=== PATIENT | female | born 1940 | race Caucasian/White ===

== ENCOUNTER 2017-03-12 20:00 | Inpatient (IN) | payer MEDICARE ==
[~2017-03-12] VITALS: Ht 157.5 cm; Wt 70.9 kg
--- NOTE | ~2017-03-12 | ECHO ---
Transthoracic Echocardiography Report (TTE) Demographics Patient Name ROBERT LAWRENCE Date of Study 03/14/2017 Patient Number [id number] Visit Number [id number] Date of 1940 Room Number G6325 Gender Female Number Age 76 year(s) Referring Gebremicheal Jeep Mechanic Lorenzo Silva RDCS, Physician Andrew RVT, RDMS, COAT AGENT Physician Interpreting Alvaro Toledo Surgical Pathologist Physician Supervising Ordering Stephane Llanes CRNA, MD/MLP Physician Nurse Stress Coffee Machine Technician Conclusions Summary Hyperdynamic left ventricle with estimated LVEF 70-75%. There is mild concentric left ventricular hypertrophy. It is normal in size with grade 1 diastolic dysfuntion. Normal right ventricular size and function. The left atrium is moderately dilated Moderate mitral annular calcification. Trivial mitral regurgitation by color Doppler. The aortic valve is mildly sclerotic with mild regurgitation. Incidental finding: Ascites noted Possible left pleural effusion. Clinical correlation is recommended. Procedure Type of Study TTE procedure:2D Echocardiogram, M-Mode, Doppler , Color Doppler. Procedure Date Date: 03/14/2017 Start: 10:40 AM Study Location: Inpatient Portable Technical Quality: Fair due to breast augmentation. Additional Indications:Worsening murmur. Patient Status: Routine HR: 80 bpm BP: 176/74 mmHg M-Mode/2D Measurements LV Diastolic Dimension: 4.22 cm LV Systolic Dimension: 3.09 cm LV Septum Diastolic: 1.31 cm LV PW Diastolic: 1.17 cm AO Root Dimension: 3 cm AV Cusp Separation: 2 cm RV Diastolic Dimension: 2.66 cm LA Dimension: 3.8 cm LA volume: 71 ml RV Base: 3.2 cm LVOT: 2.2 cm RV Mid: 2.3 cm RV Length: 5.8 cm TAPSE: 2.8 cm TDI-S': 16 cm/s Doppler Measurements AV Peak Velocity: 1.53 m/s MV Peak E-Wave: 0.81 m/s AV Peak Gradient: 9.36 mmHg MV Peak A-Wave: 1.06 m/s LVOT Peak Velocity: 1.45 m/s MV E/A Ratio: 0.76 MV P1/2t: 81 msec E' Lateral Velocity: 0.08 m/s PV Peak Velocity: 1.48 m/s PV Peak Gradient: 8.76 mmHg A' Septal Velocity: 0.08 m/s A' Lateral Velocity: 0.12 m/s Findings Left Ventricle The left ventricle is hyperdynamic. There is mild concentric left ventricular hypertrophy. It is normal in size with grade 1 diastolic dysfuntion. Right Ventricle Normal right ventricular size and function. Cannot estimate RVSP due to inadequate TR jet. Left Atrium The left atrium is moderately dilated by LA volume index measurement. Right Atrium Normal right atrial size. Mitral Valve Moderate mitral annular calcification. Trivial mitral regurgitation by color Doppler. Aortic Valve The aortic valve is mildly sclerotic with mild regurgitation. Tricuspid Valve Normal tricuspid valve structure and function. Pulmonic Valve Mild pulmonic valve regurgitation by color Doppler. Pericardial Effusion No evidence of pericardial effusion. Miscellaneous Incidental finding: Ascites noted Pleural Effusion Possible left pleural effusion. Contractility Score LV regional wall motion:(0-Non visualized 1-Normal 2-Hypokinesis 3-Akinesis 4-Dyskinesis 5-Aneurysm) Signature dtt: KANA MCMANUS dtd: 03/14/17 1040 Physician Self Edit
--- NOTE | ~2017-03-12 | DS ---
PATIENT'S NAME: HOWARD [facility] AGE: 76 Y [address] ROOM: [address] [place], [place] [address] LOCATION: GPCU ADMIT DATE: 03/12/2017 Discharge Summary DISCHARGE DATE: 03/16/2017 FAMILY PHYSICIAN: Abelino Jeffrey MD ATTENDING PHYSICIAN: Andrew Agudelo PRINCIPAL DIAGNOSES: 1. Decompensated liver cirrhosis with hepatic encephalopathy. 2. Pancytopenia. 3. Cryptogenic cirrhosis. 4. Ascites. 5. Acute kidney injury, resolved. 6. Essential hypertension. 7. History of paroxysmal atrial fibrillation without long-term anticoagulation. 8. Chronic diastolic congestive heart failure. PRINCIPLE PROCEDURES: Underwent a paracentesis by Dr. Brigette Rodriguez on 03/12/2017 without complication. HOSPITAL COURSE: Please reference any of the admitting data to the history and physical as dictated by Dr. Rodriguez. This is a 76-year-old female who presented with altered mental status with a known history of cryptogenic cirrhosis, not a transplant candidate, and was admitted for further evaluation. Her initial presenting lab values were evident of elevated liver functions with a total bilirubin of 3.9, AST of 41, and ALT of 31 respectively. She underwent a paracentesis and was given albumin without any complication. She was started on Rocephin empirically until culture was negative. SBP was ruled out. The patient was given lactulose for perceived hepatic encephalopathy and showed some mild improvement. CT scan at outlying facility did show bilateral frontal hematomas as radiologist read [id number]. However, Neuro evaluation felt this was secondary to a history of subdural hematomas and was probably chronic in nature. There is no need for any neurosurgical intervention. Cognition improved with GI interventions. SBP was ruled out and she was mobilized safely. The patient was also found to be pancytopenic upon admission with a white blood cell count of 3.3, hemoglobin of 6.8, hematocrit of 20.2, and a platelet count of 56. She was given 1 unit of packed red blood cells. She showed no signs or symptoms of bleeding and iron studies were obtained haptoglobin and ferritin. Most likely of chronic disease state, she did remain greater than 8 during the remainder of her stay, platelet counts greater than 40 during her PATIENT'S NAME: [facility] AGE: 76 Y [address] ROOM: [address] [place], [place] [address] LOCATION: GPCU ADMIT DATE: 03/12/2017 Discharge Summary DISCHARGE DATE: 03/16/2017 FAMILY PHYSICIAN: Abelino Jeffrey MD ATTENDING PHYSICIAN: Andrew Agudelo; again, she had no bleeding compromise. Her acute kidney injury responded with IV fluids and returned to normal. CONDITION AT DISCHARGE: Good. PERTINENT LAB FINDINGS: As described above in the HPI. Most notably, a CBC last on 03/16/2017 showed a white blood cell count of 3.6, hemoglobin 8.2, hematocrit 24.0, and a platelet count of 43, hemoglobin up from 6.8 to 6.9 respectively. Chemistry panel on 03/16/2017 showed a glucose 125, BUN 19, creatinine 0.8, sodium 136, potassium 4.7, chloride 104, CO2 of 25, and calcium 8.5. Liver functions, AST 41, ALT of 32, a total bilirubin of 2.1, down from 3.9 and 4.5 respectively, and LDH 166, a haptoglobin of 17, iron study of 159, TIBC of 164, percent sat of 97, ferritin level was 113.40, alpha- fetoprotein levels are pending. Copper levels and ceruloplasmin are pending. Peritoneal fluid was orange in color with 2+ turbidity, 5,000 red blood cells, and 251 white blood cells. Microanalysis showed no organisms observed or growth at 3 days. Urinalysis was negative for infection and MARIA EUGENIA was negative. RADIOLOGIC IMAGING: Abdominal ultrasound showed suspected cirrhosis with associated splenomegaly. No other acute findings. DISCHARGE MEDICATIONS: 1. Lasix 40 mg p.o. everyday. 2. Aldactone 100 mg p.o. everyday. 3. Lactulose 20 g 1 packet p.o. 3 times daily titrating to 3 to 4 bowel movements every 24 hours. 4. Lisinopril hydrochlorothiazide 20/12.5 mg 1 tablet p.o. everyday. 5. Metoprolol 25 mg p.o. everyday. 6. Protonix 40 mg p.o. everyday. DISCHARGE INSTRUCTIONS: The patient will be discharged to home with diet and activity is as tolerated. She is from the [facility] and is visiting family and she plans to return within the next 2 weeks; however, she does not return within the next 2 weeks, she is to get a CBC and a CMS at a followup with a PCP in [place], which she has seen Dr. Abelino Jeffrey in the past. If she does return to [place], it was recommended for her to see her PCP for those laboratory values in the next 2 weeks. She should also follow up with her primary gastroenterology team within the next 2 to 4 weeks with recommendations for followup EGD for her history of esophageal varices for surveillance. She does have a history of banding. PATIENT'S NAME: HOWARD [facility] AGE: 76 Y [address] ROOM: [place] [address] [facility] ADMIT DATE: 03/12/2017 Discharge Summary DISCHARGE DATE: 03/16/2017 FAMILY PHYSICIAN: Abelino Jeffrey MD ATTENDING PHYSICIAN: Andrew Agudelo At the time of discharge, she did have to have a PICC line placed and this was removed without any complications by nursing. The above line of management was discussed with the patient and spouse who stated complete understanding. All questions were answered with statements of satisfaction. Thank for allowing us to participate in the care of this patient while at [facility]. TERE WALLACE APRN, APRN FOR MD MARJ CHÁVEZ/brent /[id number] CC: Abelino Jeffrey MD d: 03/17/17 0209 t: 03/18/17 1659, DISCHARGE SUMMARY
--- NOTE | ~2017-03-12 | OR ---
PATIENT'S NAME: ROBERT LAWRENCE [facility] AGE: 76 Y [address] ROOM: [place] [address] [facility] ADMIT DATE: 03/12/2017 OR/Procedure Report DISCHARGE DATE: FAMILY PHYSICIAN: RACHID PEREZ MD ATTENDING PHYSICIAN: SHIV RODRIGUEZ SURGEON: Elmira Rodriguez MD WINDER HAND: DATE OF PROCEDURE: 03/12/2017 PROCEDURE: Diagnostic paracentesis. INDICATIONS: To diagnose spontaneous bacterial peritonitis. DESCRIPTION OF PROCEDURE: Informed consent was obtained from the over the phone with a nurse listening to the call. Risk and benefits were explained to the who gave us the permission to go ahead and do the procedure. Using ultrasonography, a pocket of fluid was identified in the left lower quadrant. The patient was prepped in sterile fashion. Local anesthesia was achieved with 1% lidocaine. Using an 18-gauge needle, we entered the peritoneal cavity with aspiration of the yellow fluid. We took about 30 mL of fluid, which was bryn, yellow in color, turbidity, a little turbid. No immediate complications of the procedure were noted. The fluid was sent to the lab for chemical examination. ELMIRA RODRIGUEZ MD DANA/modl /[id number] d: 03/13/17 0027 t: 03/23/17 0336, OPERATIVE SUMMARY
--- NOTE | ~2017-03-12 | CON ---
PATIENT'S NAME: [facility]ARD [facility] AGE: 76 Y [address] ROOM: [place] [address] LOCATION: GPCU ADMIT DATE: 03/12/2017 Consultation DISCHARGE DATE: FAMILY PHYSICIAN: RACHID PEREZ MD ATTENDING PHYSICIAN: SHIV RODRIGUEZ DATE OF CONSULTATION: 03/13/2017 REFERRING PHYSICIAN: JUSTIN MARC MD REASON FOR CONSULTATION: Hepatic encephalopathy and decompensated liver cirrhosis. HISTORY OF PRESENT ILLNESS: This is a very pleasant, 76-year-old female with past medical history of cryptogenic cirrhosis and decompensated liver disease. The patient was admitted with hepatic encephalopathy, ascites as well as history of bilateral subdural hematomas, while being on oral anticoagulation for atrial fibrillation. The patient was admitted to [facility] with increased confusion. The patient was given lactulose, though was transferred to [facility] secondary to worsening of her cognition. A CT scan was completed at the outside facility showing bilateral frontal hematomas as the radiologist read as acute on chronic. On admission, the patient was confused, not alert and oriented. She complained of abdominal pain. Diagnostic tap was completed and is currently pending at this time. She does state that she was having abdominal pain for the past 4 to 5 days with no associated bowel changes. She denies any chest pain, chest pressure, or shortness of breath. PAST MEDICAL HISTORY: Cryptogenic cirrhosis with decompensation manifested as esophageal varices, hepatic encephalopathy, and ascites; paroxysmal atrial fibrillation, was on long-term anticoagulation; subdural hematoma in the past; history of diastolic heart failure; anemia of chronic disease; chronic respiratory failure with hypoxia; type 2 diabetes, and history of breast cancer. SOCIAL HISTORY: The patient denies any ongoing toxic habits. FAMILY HISTORY: The patient's father from emphysema. She does have 2 brothers with cirrhosis, those both received transplant. ALLERGIES: MORPHINE, DARVON, AND DEMEROL. CURRENT MEDICATIONS: PATIENT'S NAME: HOWARD [facility] AGE: 76 Y [address] ROOM: [place] [address] LOCATION: GPCU ADMIT DATE: 03/12/2017 Consultation DISCHARGE DATE: FAMILY PHYSICIAN: RACHID PEREZ MD ATTENDING PHYSICIAN: SHIV RODRIGUEZ Please refer to the medication administration record. REVIEW OF SYSTEMS: All point review of systems was completed. All were negative except for those identified in the history of present illness. PHYSICAL EXAMINATION: GENERAL: A pleasant, 76-year-old female, who appears to be in no acute distress. VITAL SIGNS: Blood pressure 124/48, pulse of 73, and oxygen saturations 98%. SKIN: [place], warm, and dry. No jaundice. HEENT: Head is normocephalic and atraumatic. Pupils are equal, round, and reactive to light. Sclerae are clear. Nonicteric. Oral mucosa is pink and moist. NECK: Soft and supple. CARDIOVASCULAR: Regular. Normal S1 and S2. RESPIRATORY: Respirations are even and unlabored. LUNGS: Clear to auscultation. ABDOMEN: Soft, round, and tender throughout. Bowel sounds are positive. MUSCULOSKELETAL: No muscle weakness or atrophy. EXTREMITIES: No edema. NEUROLOGICAL: Positive for asterixis. The patient is an alert and oriented x3. LABORATORY DATA AND DIAGNOSTIC DATA: Laboratory was reviewed from the outside facility showing hyperkalemia with potassium of 5.4. AST was 58, ALT of 45, and ammonia 110. Abdominal ultrasound with diagnostic paracentesis was also completed and currently pending at this time. ASSESSMENT AND PLAN: Again, this is a very pleasant, 76-year-old female, who was recently transferred from [facility] with hepatic encephalopathy and ascites as well as a history of cryptogenic cirrhosis, decompensated. The patient did undergo a paracentesis for diagnostic approach as this is pending for probable SBP. The patient currently is on ceftriaxone at this time as this should be continued. The patient will also be recommended to continue lactulose regarding her hepatic encephalopathy. Complete liver workup will be obtained including serum copper ceruloplasmin, iron TIBC, ferritin, alpha-1 antitrypsin, and autoimmune profile. Further recommendations to be given over the course of the patient's hospitalization. PATIENT'S NAME: ROBERT LAWRENCE [facility] AGE: 76 Y [address] ROOM: [address] [place], [place] [address] [facility] ADMIT DATE: 03/12/2017 Consultation DISCHARGE DATE: FAMILY PHYSICIAN: RACHID PEREZ MD ATTENDING PHYSICIAN: SHIV RODRIGUEZ NITZA ARCHER MD MMF/brent /[id number] d: 03/15/17 1159 t: 03/15/17 1419, CONSULTATION REPORT
--- NOTE | ~2017-03-12 | OR ---
PATIENT'S NAME: ROBERT LAWRENCE [facility] AGE: 76 Y [address] ROOM: [place] [address] [facility] ADMIT DATE: 03/12/2017 OR/Procedure Report DISCHARGE DATE: FAMILY PHYSICIAN: RACHID PEREZ MD ATTENDING PHYSICIAN: SHIV RODRIGUEZ SURGEON: Kingston Streeter MD PERFECT BINDER SETTER: DATE OF PROCEDURE: 03/13/2017 Of note, procedure was performed in the patient's room in the progressive care unit. PREOPERATIVE DIAGNOSIS: Need for vascular access. POSTOPERATIVE DIAGNOSIS: Need for vascular access. PROCEDURE PERFORMED: Placement of peripherally inserted central catheter to the right arm. COMPLICATIONS: None. DESCRIPTION OF PROCEDURE: After informed consent was obtained, the patient's right arm was sterilely prepped and draped. Venous mapping before the procedure identified a basilic vein that was approximately 4.5 mm throughout the course of its travel in the medial right arm. Her left arm was excluded from interrogation given her history of prior mastectomy. Under sterile technique, ultrasound evaluation of her proximal medial right arm revealed a brachial artery and paired brachial veins which were large enough to accommodate a 5-Welsh catheter. After local anesthetic consisting of 1% lidocaine was infiltrated into the dermis, venous access using a 20-gauge IV catheter into one of the paired brachial veins was accomplished with ultrasound guidance on the first pass without injury to adjacent nerve or artery. The micro introducer wire passed without difficulty. The skin puncture was enlarged, and a dilator introducer sheath was passed over the wire. Through this breakaway introducer, a 5-Welsh double-lumen peripherally inserted central catheter was advanced after being cut at 35 cm. This distance had been measured before the initiation of the procedure using external landmarks. The catheter was advanced without difficulty with the patient's head turned to the right shoulder. Ultrasound evaluation of the right neck showed no evidence of the catheter extending into the internal jugular vein. Sterile dressings were applied. A postprocedure x-ray showed the line to be in good position. The wire was extracted. The catheter was flushed and made ready for venous access and use. PATIENT'S NAME: ROBERT LAWRENCE [facility] AGE: 76 Y [address] ROOM: [place] [address] LOCATION: GPCU ADMIT DATE: 03/12/2017 OR/Procedure Report DISCHARGE DATE: FAMILY PHYSICIAN: RACHID PEREZ MD ATTENDING PHYSICIAN: SHIV RODRIGUEZ KINGSTON STREETER MD CM/brent /[id number] d: 03/13/17 1811 t: 04/12/17 1448, OPERATIVE SUMMARY
--- NOTE | ~2017-03-12 | CON ---
PATIENT'S NAME: [facility] AGE: 76 Y [address] ROOM: [id number] [place], [place] [address] LOCATION: GPCU ADMIT DATE: 03/12/2017 Consultation DISCHARGE DATE: 03/16/2017 FAMILY PHYSICIAN: Abelino Jeffrey MD ATTENDING PHYSICIAN: Andrew Agudelo DATE OF CONSULTATION: 03/13/2017 REFERRING PHYSICIAN: Jerry Multani MD The patient was seen in neurologic consultation on 03/13/2017 at 10 a.m. I was asked to evaluate Ms. Lawrence, a 76-year-old female patient who came in with change of mental status associated with some mild symptoms of hepatic encephalopathy whereby she was having poor responsiveness at times during her initial admission, then rapidly got better during her days of treatment here in the hospital. Back in December of 2016, she was seen here in our hospital due to bilateral subdural hematomas and was just treated conservatively. She was evaluated by the neurosurgeon, Dr. Penn who felt like myself, the patient did not need any evacuations of these subdural hematomas. According to the patient, she was on anticoagulation a number of months ago, but this was discontinued due to a recent fall and head injury when she was home back in her home state of [facility]. She said that she accidentally fell on to the ground and hit a rock. Apparently was briefly seen in the hospital in [place] at that time. Sometime thereafter, the patient did have a workup for mild change in her mental status. Actually sent here from the hospital yesterday from [place] after the CT scan done there showed areas of bilateral frontal hematoma consistent with bilateral subdurals. There was some very mild flattening of the frontal gyri without any significant mass effect. Essentially again, the patient did have the prior subdural that was noted back in admission back in December of this year, but there was some evidence perhaps of some newer bleed into some more subacute bleed. There was a very small little area in the subdural region, increased density that seemed to be affecting the patient's mental status. By history, the patient has a history of cirrhosis that is not determined as far as the etiology. Has had a history of progressive liver disease with associated ascites and variceal bleeds. As mentioned, she was also on anticoagulation a few months ago due to atrial fibrillation. However, the anticoagulation had been discontinued and as of this visit, the patient states that she had not been on anticoagulation for many months. Apparently, she was seen by the Gastroenterology service in [facility] back in mid January of this year and they put her on aggressive daily treatment of combination of Lasix and Aldactone as well as taking lactulose treatment four times a day. She also had been on rifaximin for a short time also, but she could not afford this medication. She had to discontinue it. The patient apparently was compliant with all her medications. It is believed that she did have some alteration in her mental PATIENT'S NAME: [facility] AGE: 76 Y [address] ROOM: [id number] [place], [place] [address] LOCATION: GPCU ADMIT DATE: 03/12/2017 Consultation DISCHARGE DATE: 03/16/2017 FAMILY PHYSICIAN: Abelino Jeffrey MD ATTENDING PHYSICIAN: Andrew Agudelo status, possibly from the setting of dehydration, the combination of her diuretics, as well as treatment with her lactulose. As of this admission, the patient's diuretics were held and she received IV fluid rehydration and just with the rehydration alone and holding the medications, the patient's mental status actually improved dramatically. Therefore, from neurological perspective, this seemed to have been acute metabolic disorder, likely associated with some very mild hepatic encephalopathy, perhaps dehydration may have played a role compounding elevation in ammonia level at 110. Question also if she had a concurrent infection such as a spontaneous bacterial peritonitis. Therefore, during this admission, the patient had a peritoneal analysis. Thankfully, it did not show any evidence of an active infection. At the time of my seeing the patient, her mental status was excellent. Over the course of the past 24 hours, the patient has made a dramatic improvement in her mental status. Whereby her stated that she was extremely lethargic and confused on the and taken to [facility]. At the time when I saw her, she was fully alert and oriented, answering questions appropriately, not only that she was able to give me a very clear history with much elaboration. At the current time of my seeing the patient, she was also receiving packed red cells for a low hemoglobin of 6.9 in the setting of normal ferritin. The rest of her basic metabolic panel essentially within normal limits. AST and ALT were normal. From cardiac standpoint, she was noted to be in normal sinus rhythm even though history of atrial fibrillation had been noted in the distant past. PAST MEDICAL HISTORY: She has extensive medical history associated with cryptogenic liver failure. She has been through a full year with development of ascites back into November of this year. She had multiple paracentesis at least 6 or 7 procedures. She had been evaluated by our Gastroenterology service in [facility], decided that she would not be a candidate for liver transplant due to her age of 73 as well as the history of atrial fibrillation, coronary artery disease, as well as the concomitant bilateral subdural hematomas. The patient is . She used to work as a nurse for 40 years. She has a home in [place] but does come up to the local area prior to stay in [place]. She was getting a workup and eventually made her way to our area. She said to be with a granddaughter in the [facility]. Denies any alcohol history and she does not smoke. Also history of breast cancer, status post left mastectomy, history of obesity, benign essential hypertension, paroxysmal atrial fibrillation, now in normal sinus rhythm, was on anticoagulation in the past. She has also history of chronic anemia. FAMILY HISTORY: Father had of emphysema. She has two brothers who had liver failure and PATIENT'S NAME: [facility] AGE: 76 Y [address] ROOM: [place] [address] LOCATION: GPCU ADMIT DATE: 03/12/2017 Consultation DISCHARGE DATE: 03/16/2017 FAMILY PHYSICIAN: Abelino Jeffrey MD ATTENDING PHYSICIAN: Andrew Agudelo both received liver transplants. According to her, both of the liver failures in her brothers were idiopathic. PAST SURGICAL HISTORY: Surgeries were multiple including cholecystectomy in 1967 at age 28, appendectomy in 1948 at age 8, right knee replacement in 1995, another right knee replaced twice with repeat surgery back in December of 2016. She had corneal transplant surgery back in 1982, hysterectomy in 1989, exploratory laparotomy back in 1989, and mastectomy in August of 1995. The most recent multiple paracentesis procedures are during 2017 as well as on this admission. HOME MEDICATIONS: Her home medications prior to admission included: 1. Lasix 40 mg daily. 2. Lactulose 30 mL four times a day. 3. Metoprolol 25 mg one time daily. 4. Pantoprazole 40 mg p.o. daily. 5. Spironolactone 1 tablet daily. 6. Zinc sulfate 220 mg p.o. daily. REVIEW OF SYSTEMS: Ms. Lawrence is very pleasant 76-year-old lady with cryptogenic cirrhosis essentially treated with multiple paracentesis this year. She is known to have elevation in her ammonia associated with her liver failure. She presented to [facility] on the with lethargy and somnolence, essentially made a very quick recovery here in the hospital with fluid rehydration and holding diuretic therapy. She was also started on antibiotics for the thought of spontaneous bacterial peritonitis, though this was negative. The patient quickly made a recovery and unlikely had any evidence of SBP. She is doing very well now. Her mental status is back to baseline and she was able to give a full report here. PHYSICAL EXAMINATION: VITAL SIGNS: Showed a pulse of 80 and regular, respirations 18, blood pressure 149/65, and temperature 98.9. NEUROLOGIC: Cranial nerves 2 through 12 were intact. Motor exam revealed full power in the upper and lower extremities proximally and distally. She had normal bulk and tone. No atrophy of the muscles. She was able to do cross-body commands and rapid alternating hand movements and coordination on ppfysc-xy-kubw was excellent. I did not appreciate any asterixis, which was possibly reported prior to my seeing the patient. She had no evidence of any tremors. Her gait was narrow based. She did have abdominal distention, which limited her getting up from the bed easily, but she was able to ambulate well with narrow-based gait. She has negative Romberg's. PATIENT'S NAME: [facility] AGE: 76 Y [address] ROOM: [id number] [place], [place] [address] LOCATION: GPCU ADMIT DATE: 03/12/2017 Consultation DISCHARGE DATE: 03/16/2017 FAMILY PHYSICIAN: Abelino Jeffrey MD ATTENDING PHYSICIAN: Andrew Agudelo IMPRESSION: Ms. Lawrence is doing very well. She is back to her normal baseline. This may have been simply an issue of worsening of hepatic encephalopathy that may have been exacerbated due to some dehydration. Started antibiotic course here, but there was no evidence of an active infection. Spontaneous bacterial peritonitis has essentially been ruled out. She had additional workup here in our hospital by the GI service for the etiology associated with her liver failure, which included testing of anti-LKM1, MARIA EUGENIA, and apoceruloplasmin. Standpoint neurologically, I do not believe that she has neurologic problems associated with liver failure, per se, other than some mild hepatic encephalopathy, which could get exacerbated with over diuretic use, a possible etiology for her mild confusion. She did not have any fever. I do not believe that she has any signs of asterixis on physical exam. I do agree with the workup for testing for Tito's, general genetic workup though the etiology for liver failure seems to have hit to other family members. From standpoint of the subdural hematomas, they appeared to be chronic at this time. They are slightly compressive of the gyri, but I do not believe that they are having any affect neurologically on her gait or even on her mentation. Not really appreciate much of an acute on chronic bleed into the subdural. If new blood was there that was extremely slight. The patient was seen by Neurosurgery and with the agreement that no interventional drainage of these subdurals was necessary. Talking to the patient, I definitely told her that if she had any difficulty in her gait or in problems with comprehension developing unexplained that she should come to the emergency room again for re- evaluation of the subdurals. Right now, she is off anticoagulation and presently, I do not believe that it would be safe for her to go back on anticoagulation. She had a diagnosis of atrial fibrillation, but is in normal sinus rhythm. It is best that she not go on anticoagulation. Be available to have the patient follow up with us in Neurology Clinic if she remains in the [facility] though she likely has plans to go back to her home state of [place] in the very near future. MD CHLOE LARSON/brent /[id number] d: 03/19/17220 t: 04/06/17 1620, CONSULTATION REPORT
--- NOTE | ~2017-03-12 | HP ---
PATIENT'S NAME: [facility] AGE: 76 Y [address] ROOM: [address] [address] [facility] AD[facility] DATE: 03/12/2017 History & Physical DISCHARGE DATE: FAMILY PHYSICIAN: PHYSICIAN, UNKNOWN ATTENDING PHYSICIAN: SHIV RODRIGUEZ DATE OF SERVICE: CHIEF COMPLAINT: Altered mental status. HISTORY OF PRESENT ILLNESS: A 76-year-old lady with a past medical history of cryptogenic cirrhosis, not a candidate for transplant, also history of decompensated liver disease, manifested as esophageal varices, ascites, and hepatic encephalopathy; also, have history of bilateral subdural hematomas while being on oral anticoagulation for atrial fibrillation. She was recently admitted to the [facility] for increased confusion and altered mental status. Over there, she was treated with lactulose with a goal of 3 to 4 bowel movements per day. Her condition worsened in terms of cognition and she was transferred here for further medical care. A CAT scan of the head was also done over there, which did show bilateral frontal hematoma and the radiologist read it as [id number]. On my encounter, she is confused, not alert and oriented x3. She is complaining that she is having abdominal pain, but she denied any chest pain, but does not have any shortness of breath, headache, fever, or chills. She said she is tender all over the abdomen and has been going on for 4 or 5 days now, not associated with any constipation or diarrhea. She denied any burning on urination, any swelling, or any back pain. REVIEW OF SYSTEMS: All other systems reviewed were negative except what is mentioned in the HPI. ALLERGIES: DEMEROL, MORPHINE, AND DARVON. PAST MEDICAL HISTORY: 1. Cryptogenic cirrhosis with decompensation manifested as esophageal varices, hepatic encephalopathy, as well as ascites. 2. Paroxysmal atrial fibrillation, was on long-term anticoagulation, not on anymore. 3. Subdural hematoma in the past, conservatively managed. 4. History of diastolic heart failure. 5. Rlqbha-rg-jcrqxbz disease. 6. Chronic respiratory failure with hypoxia. 7. Cryptogenic cirrhosis, not a candidate for transplant, had been evaluated PATIENT'S NAME: [facility] AGE: 76 Y [address] ROOM: [address] [place], [place] [address] LOCATION: GPCU ADMIT DATE: 03/12/2017 History & Physical DISCHARGE DATE: FAMILY PHYSICIAN: PHYSICIAN, UNKNOWN ATTENDING PHYSICIAN: SHIV RODRIGUEZ for that at [facility]. 8. History of type 2 diabetes. 9. History of breast cancer. FAMILY HISTORY: Father because of emphysema. Two brothers have cirrhosis and they both received transplant. MEDICATIONS: Home medications include: 1. Lasix. 2. Lactulose. 3. Lisinopril. 4. Hydrochlorothiazide. 5. Metoprolol. 6. Pantoprazole. 7. Spironolactone. PHYSICAL EXAMINATION: VITAL SIGNS: 124/48, 72, afebrile, 16, and satting 98% on room air. GENERAL: No acute distress. Alert and oriented x0. HEAD: Atraumatic, normocephalic. EYES: Positive icterus, positive pallor. CARDIOVASCULAR: S1, S2, systolic ejection murmur noted at the pulmonic area. LUNGS: Clear to auscultation bilaterally. ABDOMEN: Soft, tender in all quadrants, shifting dullness present, no thrill present. Bowel sounds are present. EXTREMITIES: No clubbing, cyanosis, or edema. PSYCH: Low volume speech, not alert and oriented. NEURO: Not alert and oriented. Cranial nerves 2 through 12 are intact. No motor or sensory deficit noted. MUSCULOSKELETAL: Sarcopenia noted. No joint tenderness noted. SKIN: No blemishes or dryness noted. ENDOCRINE: No thyromegaly or myxedema noted. LABORATORY DATA: Lab work done at the outside facility showed white count of 5, hemoglobin of 9.4, and platelets of 91. BMP was impressive for sodium of 130, potassium of 5.4, chloride 101, bicarb 20, BUN 29, creatinine 1.3, calcium of 8.4, alkaline phosphatase was 138, AST 58, ALT 45, and albumin was 2.4. EKG over there showed normal sinus rhythm. She does have history of long QT syndrome. Ammonia level was impressive at 110. CT scan of the head was done, which did show bifrontal subdural hematoma, gctnl-ni-vthdnoj, 11-mm in depth having mass effect on the underlying lobes without any acute midline shift. PATIENT'S NAME: [facility] AGE: 76 Y [address] ROOM: [id number] [place], [place] [address] [facility] AD[facility] DATE: 03/12/2017 History & Physical DISCHARGE DATE: FAMILY PHYSICIAN: PHYSICIAN, UNKNOWN ATTENDING PHYSICIAN: SHIV RODRIGUEZ ASSESSMENT AND PLAN: 1. Hepatic encephalopathy. 2. Very likely spontaneous bacterial peritonitis. 3. Ascites. 4. Decompensated liver disease. 5. Acute kidney injury. 6. Xidpo-qc-yxeczjs subdural hematoma. 7. Type 2 diabetes. 8. Tkertb-qs-ermuygg disease. 9. Chronic respiratory failure on 2 L of oxygen. 10. Hyperkalemia. 11. Hyponatremia. PLAN: We are going to admit this lady. We did go ahead and took the consent from the for diagnostic paracentesis to rule out or rule in spontaneous bacterial peritonitis. At this point, we will continue the lactulose to treat hepatic encephalopathy and start her on ceftriaxone to empirically treat for some spontaneous bacterial peritonitis until the lab work is back. We are going to treat the hyperkalemia with the Kayexalate at this point. We are going to establish a good urine output for treatment of high potassium. We are going to hold her diuretics and give her albumin resuscitation to see the improvement in the kidney function and urine outflow. We did go ahead and consulted Neurosurgery and had a verbal discussion with Dr. Penn who read the CT report and he is going to see the patient in the morning, but at this point, he does not think there is any acute surgical intervention needed to be done. Sliding scale insulin, neuro checks, a.c. q.h.s. Accu-Cheks. We will obtain urine sodium, urea, and creatinine. Urinalysis for any UTI. Strict I and Os. Repeat BMP in 2 hours PT/INR to look for high potassium and get a sense of her MELD score. She is a DNR and we are going to involve Palliative Care early on in this patient's care. Decision to do a therapeutic paracentesis will be undertaken by the primary physician in the morning. MD DANA HANSEN/brent /[id number] D: [id number] T: [id number] HISTORY & PHYSICAL
[2017-03-12] MEDS ORDERED: KRISTALOSE20 GM PO (20:53)
[2017-03-12] MEDS ORDERED: LASIX40 MG PO (20:54)
[2017-03-12] MEDS ORDERED: LOPRESSOR25 MG PO (20:55)
[2017-03-12] MEDS ORDERED: LISINOPRIL-HCT1 EAC1 PO (20:55)
[2017-03-12] MEDS ORDERED: ALDACTONE100 MG PO (20:56)
[2017-03-12] MEDS ORDERED: PROTONIX40 MG PO (20:56)
[2017-03-12 22:54] LABS: PERITONEAL FLUID TURBIDITY 2+ (CLEAR)
[2017-03-12 23:06] LABS: BILIRUBIN URINE NEGATIVE (NEGATIVE); BLOOD URINE 25 /UL (NEGATIVE); COLOR URINE YELLOW (YELLOW); GLUCOSE URINE NEGATIVE (NEGATIVE); KETONE URINE NEGATIVE (NEGATIVE); LEUKOCYTES URINE NEGATIVE /UL (NEGATIVE); NITRITE URINE NEGATIVE (NEGATIVE); PROTEIN URINE NEGATIVE (NEGATIVE); TURBIDITY URINE CLEAR (CLEAR); UROBILINOGEN URINE NORMAL (NORMAL)
[2017-03-12 23:17] LABS: WBC URINE RARE #/HPF (NEGATIVE)
[2017-03-12 23:18] LABS: BACTERIA URINE NEGATIVE (NEGATIVE)
[2017-03-12 23:23] LABS: INR - (THERAPEUTIC) 1.24 (0.92-1.07); PROTIME 13.1 SECONDS (9.8-11.4)
[2017-03-13 00:04] LABS: % PERITONEAL FLUID MESO 5 % (0-0); % PERITONEAL FLUID MONO/MACRO 55 % (0-0); % PERITONEAL FLUID NEUT 5 % (0-25)
[2017-03-13 01:15] LABS: ANION GAP 15.5 (10.0-19.0); CALCIUM 8.8 mg/dL (8.5-10.5); CREATININE 1.1 mg/dL (0.5-1.1); POTASSIUM 4.5 mMol/L (3.7-5.1)
--- NOTE | 2017-03-13 01:44 | NUR ---
patient has a history of a subdural in January. She was at [facility] for 10 days then went home with and granddaughter in [place]. On 03/08 she was admitted to [facility] for increased confusion and hepatic encephalopathy. She was transfered to [facility] with worsening labs and CT scan of head showing acute on chronic bilateral frontal subdural. Ammonia level was 110 and potassium 5.4.
--- NOTE | 2017-03-13 03:37 | NUR ---
Significant Event: Patient was initially oriented to self only. At 0335 was able to correctly state name, Sweetie, current month and year, and her year. She does continue to make confused statements at times. Pupils continue to be equal and reactive, hand grasps and strength to extremities are equal. Lactulose and kayexalate given. Potassium started at 5.4 last was 4.5. Ammonia level on admission 110. No order to recheck. No BM tonight. Albumin and rocephin also given tonight. Currently saline locked to right FA. Diagnostic paracentesis done at bedside on admission. Puncture site to left lower abd. covered with bandaide. Patient is slightly jaundice with jaudiced sclera. Capone with 800ml of UOP. Cooperative with cares, did try to get out of bed once. Bed alarm on. Plan for neuro and GI consults today. Follow up: Continue to monitor. to come today.
[2017-03-13 07:03] LABS: BASOPHIL % 0.6 %; EOSINOPHIL % 1.2 %; HEMATOCRIT 20.2 % (33.0-46.0); IMMATURE GRANULOCYTE # 0.1 K/uL (0.0-0.3); IMMATURE GRANULOCYTE % 1.8 %; LYMPHOCYTE # 0.9 K/uL (0.8-4.0); MONOCYTE # 0.5 K/uL (0.0-1.0); MONOCYTE % 15.2 %; MPV 10.8 fl (9.4-12.4); NEUTROPHIL # (ANC) 1.7 K/uL (1.8-7.8); NEUTROPHIL % 53.2 %; NRBC % 0 /100WBC (0-0.00); RBC 2.04 M/uL (3.50-5.50); RDW-CV 16.4 % (11.9-14.6); WBC 3.3 K/uL (4.0-11.0)
[2017-03-13 07:05] LABS: HEMOGLOBIN 6.8 g/dL (10.0-15.0); MCH 33.3 pg (27.0-34.0); MCHC 33.7 gm/dL (32.0-36.5); PLATELET COUNT 56 K/uL (150-450)
[2017-03-13 07:28] LABS: ALBUMIN 3.1 gm/dL (3.5-5.0); ANION GAP 15.1 (10.0-19.0); CALCIUM 8.4 mg/dL (8.5-10.5); POTASSIUM 4.1 mMol/L (3.7-5.1); TOTAL BILIRUBIN 3.9 mg/dL (0.0-1.5); TOTAL PROTEIN 6.2 g/dL (6.0-8.4)
[2017-03-13 14:34] LABS: TOTAL BILIRUBIN 3.9 mg/dL (0.0-1.5); TOTAL PROTEIN 6.3 g/dL (6.0-8.4)
--- NOTE | 2017-03-13 16:29 | NUR ---
Significant Event: ALERT AND ORIENTED X3. FORGETFUL AT TIMES. UP WITH 1 ASSIST, GB AND WALKER. BM X2. DUNN CATHETER WITH 550 ML LUANN/ORANGE UOP. PICC LINE PLACED TO RIGHT UPPER ARM, DOUBLE LUMEN, GOOD BLOOD RETURN. DC'D RIGHT PIV. VSS. ROOM AIR. HGB 6.8 THIS AM, AWAITING 1 UNIT OF PRBC FROM LAB. AT BEDSIDE. Follow up: UNABLE TO FIND PATIENT'S DENTURES, CALLS TO [facility] AND TO [facility] BUT UNABLE TO LOCATE.
--- NOTE | 2017-03-13 20:01 | NUR ---
Patient was admitted with top dentures only. At 0500 patient stated "I hope my remembers to bring my bottom dentures and glasses when he comes today". At 0500 I brushed her top dentures and gave them back to her. She put them back into her mouth.
[2017-03-14 05:24] LABS: ALBUMIN 2.7 gm/dL (3.5-5.0); ANION GAP 10.9 (10.0-19.0); CREATININE 0.7 mg/dL (0.5-1.1); POTASSIUM 3.9 mMol/L (3.7-5.1); TOTAL BILIRUBIN 4.5 mg/dL (0.0-1.5); TOTAL PROTEIN 5.6 g/dL (6.0-8.4)
[2017-03-14 05:28] LABS: BASOPHIL % 0.3 %; EOSINOPHIL % 1.3 %; HEMATOCRIT 20.3 % (33.0-46.0); HEMOGLOBIN 6.9 g/dL (10.0-15.0); IMMATURE GRANULOCYTE % 0.3 %; LYMPHOCYTE # 0.8 K/uL (0.8-4.0); LYMPHOCYTE % 24.5 %; MCH 33.3 pg (27.0-34.0); MCV 98.1 fl (83.0-98.0); MONOCYTE # 0.5 K/uL (0.0-1.0); MONOCYTE % 17.1 %; NEUTROPHIL # (ANC) 1.8 K/uL (1.8-7.8); NEUTROPHIL % 56.5 %; NRBC % 0 /100WBC (0-0.00); PLATELET COUNT 46 K/uL (150-450); RBC 2.07 M/uL (3.50-5.50); RDW-CV 17.2 % (11.9-14.6); WBC 3.1 K/uL (4.0-11.0)
--- NOTE | 2017-03-14 05:48 | NUR ---
SIGNIFICANT EVENT: A/O X 3 FORGETFUL AT TIMES. DUNN INTACT WITH 500ML OF UOP. BM X 2. NO C/O PAIN DURING SHIFT. 1 UNIT PRBC'S TRANSFUSED WITHOUT COMPLICATION.
--- NOTE | 2017-03-14 15:26 | NUR ---
Significant Event: A/O X3. SLEEPY. VSS. DENIES PAIN. UP WITH 1 ASSIST, GB AND WALKER. RIGHT UPPER FA DUAL LUMEN PICC SL'D, OLD BLOODY DRAINAGE UNDER DRESSING. 1 UNIT PRBC TRANSFUSED. DUNN CATHETER WITH 375 ML UOP, ORANGE/LUANN URINE. ACCU-CHECKS CHANGED TO BIDAC. Follow up: CAN NOT FIND PATIENT'S DENTURES.
--- NOTE | 2017-03-15 05:21 | NUR ---
Significant event: A/O x 3. Up with 1 assist and walker. Capone intact with 400ml of UOP, Gill/orange in color. Accu checks BID. PICC to right upper arm with old bloody drainage, dressing is intact.
[2017-03-15 05:24] LABS: BASOPHIL % 0.6 %; EOSINOPHIL # 0.1 K/uL (0.0-0.5); EOSINOPHIL % 2.5 %; HEMOGLOBIN 8.2 g/dL (10.0-15.0); IMMATURE GRANULOCYTE % 0.3 %; LYMPHOCYTE # 0.7 K/uL (0.8-4.0); LYMPHOCYTE % 19.3 %; MCH 33.2 pg (27.0-34.0); MCHC 34.2 gm/dL (32.0-36.5); MCV 97.2 fl (83.0-98.0); MONOCYTE # 0.5 K/uL (0.0-1.0); MONOCYTE % 13.4 %; MPV 11.4 fl (9.4-12.4); NEUTROPHIL # (ANC) 2.3 K/uL (1.8-7.8); NEUTROPHIL % 63.9 %; NRBC % 0 /100WBC (0-0.00); PLATELET COUNT 51 K/uL (150-450); RBC 2.47 M/uL (3.50-5.50); RDW-CV 17.5 % (11.9-14.6); WBC 3.6 K/uL (4.0-11.0)
[2017-03-15 05:28] LABS: ALBUMIN 2.8 gm/dL (3.5-5.0); ANION GAP 10.5 (10.0-19.0); CALCIUM 8.4 mg/dL (8.5-10.5); CREATININE 0.8 mg/dL (0.5-1.1); POTASSIUM 4.5 mMol/L (3.7-5.1); TOTAL PROTEIN 5.8 g/dL (6.0-8.4)
[2017-03-15 05:30] LABS: TOTAL BILIRUBIN 3.4 mg/dL (0.0-1.5)
--- NOTE | 2017-03-15 13:31 | NUR ---
Introduced self and care management services to patient. Alert and oriented. Lives in [place], [place] with spouse. Visiting granddaughter in [facility]. Her plan is to go back to granddaughters on discharge and says she hopes she is well enough to travel back to [place] with spouse sometime next week. They drove out here, son from [place] said he can drive out to get them as well if needed but they will sort that out. Denies needs. Will follow and assist with dc planning as needs identified.
--- NOTE | 2017-03-15 14:03 | NUR ---
A-NUTRITION F/U UPPER DENTURES ONLY; TRYING TO FIND HER LOWER DENTURES. NO NEW WT SINCE ADMIT. LABS: NA 136, K+ 4.5, GLU 154, BUN 20, PRECISION GRINDER 0.8, ALB 2.8 MEDS: NOVOLOG (MILD SS) DIET RX: CONSISTENT CARB W/GLUCERNA BID. PO INTAKE HAS BEEN 40-100%; AVG IS 88%. EST NUTR NEEDS: [id number] KCALS AND 54-67 GM PROTEIN D-AT NUTRITION RISK W/UNINTENDED WT LOSS R/T INADEQUATE NUTRIENT INTAKE A CLASS LINEMAN, GI FXN, FLUID LOSSES AEB 23.5% WT LOSS X 2 MOS, ASCITES, PARACENTESIS. I-CONTINUE W/GLUCERNA BID TO PROVIDED ADDITIONAL NUTRIENTS M/E-GOAL: PO INTAKE </=75% FOR DURATION OF ADMIT 1)F/U PO INTAKE, WT, AND POC IN 4-6 DAYS 2)ASSIST NEEDED
--- NOTE | 2017-03-15 16:50 | NUR ---
Significant Event: A/OX3, VSS ON ROOM AIR. DUNN REMOVED @ 1115, PT. HAS VOIDED 100mL SINCE, DID HAVE 450mL IN DUNN WHEN PULLED. NO COMPLAINTS OF PAIN. 2+EDEMA REMAINS TO JOSEPH. LOWER EXTREMITIES. DUAL LUMEN PICC TO RIGHT UPPER ARMS. PT. GETS UP SBA WITH WALKER IN ROOM. POSSIBLE D/C TO HOME TOMORROW. LABS IN AM. ACCURATE I/O'S. PT. STILL MISSING BOTTOM DENTURES, INFORMED THEY WERE NOT WITH HERE WHEN SHE WAS ADMITED AND TO TALK WITH DAIRY ABOUT THEM. DAILY WEIGHTS. Follow up: CONTINUE WITH POC.
--- NOTE | 2017-03-16 04:09 | NUR ---
Significant Event: PATIENT IS A/O X3. VSS. HR 90'S. SBP 100-140'S. AFEBRILE. 02 SATS IN MID 90'S ON RA. NO C/O PAIN. LUNGS CLEAR TO CLEAR/DIM. AMBULATED IN JIMENEZ X1 WITH WALKER/GB. SOB WITH ACTIVITY. BOWELS ACTIVE. MULTIPLE VOIDS SINCE DUNN D/C'D WITHOUT DIFFICULTY. CONTINUES TO HAVE SOME JAUDICE TO EYES. LEFT UP ABDOMEN PARACENTESIS SITE COVERED WITH BAND-AID. RIGHT UPPER ARM PICC DOUBLE LUMEN WITH GOOD BLOOD RETRUN. ON IV ROCEPHIN. ON BID ACCUCHECKS. Follow up: AM LABS. POSSIBLY HOME TODAY.
[2017-03-16 05:33] LABS: ALBUMIN 2.7 gm/dL (3.5-5.0); ANION GAP 11.7 (10.0-19.0); CALCIUM 8.5 mg/dL (8.5-10.5); CREATININE 0.8 mg/dL (0.5-1.1); POTASSIUM 4.7 mMol/L (3.7-5.1); TOTAL PROTEIN 5.8 g/dL (6.0-8.4)
[2017-03-16 05:44] LABS: TOTAL BILIRUBIN 2.1 mg/dL (0.0-1.5)
[2017-03-16 05:47] LABS: BASOPHIL % 0.3 %; EOSINOPHIL # 0.1 K/uL (0.0-0.5); EOSINOPHIL % 2.2 %; HEMOGLOBIN 8.2 g/dL (10.0-15.0); LYMPHOCYTE # 0.7 K/uL (0.8-4.0); LYMPHOCYTE % 20.5 %; MCH 33.5 pg (27.0-34.0); MCHC 34.2 gm/dL (32.0-36.5); MONOCYTE # 0.4 K/uL (0.0-1.0); MONOCYTE % 11.9 %; MPV 10.6 fl (9.4-12.4); NEUTROPHIL # (ANC) 2.4 K/uL (1.8-7.8); NEUTROPHIL % 65.1 %; NRBC % 0 /100WBC (0-0.00); RBC 2.45 M/uL (3.50-5.50); WBC 3.6 K/uL (4.0-11.0)
[2017-03-16 05:48] LABS: PLATELET COUNT 43 K/uL (150-450)
--- NOTE | 2017-03-16 14:26 | NUR ---
Received consult for financial assistance with [facility] for spouse. Reviewed chart, not a physician consult. Talked with patient, she is alert and oriented. Asked her if spouse has been staying at [facility], she reports he has been driving back and forth from [place]. Asked if he would like to stay at hospital with her rather than be driving back and forth, she reports he has been watching the great [employer] at times so can't really. Told her if he does want to stay, that he is welcome to stay in room with her, has a pull out sleeping chair in room. She says he won't need that. She is hoping to go home today. Waiting for physician to round.
[2017-03-16 17:14] LABS: CERULOPLASMIN 8 mg/dL (7-220)
== END 2017-03-16 16:00 | disposition disaster alternative care site (69) | DRG 441 ==
LOC: GPCU 20:18
PROVIDERS: Family Medicine; Internal Medicine; Internal Medicine Adolescent Medicine; ADMIT Internal Medicine
PROC: 0W9G30Z Drainage of Peritoneal Cavity with Drainage Device, Percutaneous Approach (ICD-10-PCS; principal; 2017-03-12)
PROC: B546ZZA Ultrasonography of Right Subclavian Vein, Guidance (ICD-10-PCS; 2017-03-13)
PROC: 05H533Z Insertion of Infusion Device into Right Subclavian Vein, Percutaneous Approach (ICD-10-PCS; 2017-03-13)
DX: K72.90 Hepatic failure, unspecified without coma (principal); I62.01 Nontraumatic acute subdural hemorrhage; K65.2 Spontaneous bacterial peritonitis; J96.10 Chronic respiratory failure, unspecified whether with hypoxia or hypercapnia; R18.8 Other ascites; E87.5 Hyperkalemia; I48.0 Paroxysmal atrial fibrillation; E87.1 Hypo-osmolality and hyponatremia; Z66 Do not resuscitate; E11.9 Type 2 diabetes mellitus without complications; Z51.5 Encounter for palliative care
CPT/HCPCS: C1751; J0696; J7040; J7050; P9016; P9047